=== PATIENT | female | born 1980 | race African-American/Black ===

== ENCOUNTER → 2016-12-07 | Outpatient (REF) | payer MEDICAID, OTHER ==
[2016-12-07 12:29] LABS: FREE T4 1.16 NG/DL (0.76-1.46)
== END ==
LOC: M SFHCLERA 08:51
PROVIDERS: ATTEND Family Medicine
DX: R82.90 Unspecified abnormal findings in urine (principal); N89.8 Other specified noninflammatory disorders of vagina; E04.1 Nontoxic single thyroid nodule